=== PATIENT | male | born 1950 | race Caucasian/White ===

== ENCOUNTER 2024-07-31 03:31 | Inpatient (IN) | payer OTHER, MEDICARE ==
[~2024-07-31] VITALS: Ht 172.7 cm; Wt 68.3 kg
--- NOTE | 2024-07-31 04:22 | ED.PDOC ---
HPI Comments 74-year-old male PRAMOD presents with a chief complaint of chest pain x 2 hours. Patient states that his pain is localized to his substernal region, nonradiating, and rates his pain a current 6/10. Patient mentions that he had an ND in May of this year. Status post bypass in 2011. Per EMS, patient took 3 SL Nitro of his own at home and was hypotensive on their arrival. Chief Complaint: Chest Pain Time Seen by MD: 04:12 Reviewed Notes: Medications, Allergies Allergies: Coded Allergies: NO KNOWN ALLERGIES (Unverified , 07/31/24) Information Source: Patient, Emergency Med Personnel Mode of Arrival: EMS Severity: Moderate Timing: Hours Duration: Since onset Prehospital treatment: None Location: Substernal Radiation: No Radiation Quality: Sharp Onset: At Rest Cardiac Risk Factors: HTN PE Risk Factors: None History of: ND Vital Signs Vital Signs Date Time Temp Pulse Resp B/P (MAP) Pulse Ox O2 Delivery O2 Flow Rate FiO2 07/31/24 04:56 70 12 96 Room Air* 0 21 07/31/24 04:56 97.5 86/47 (60) 97.5 Physical Exam General: Awake, alert and oriented. No acute distress. Skin: Skin in warm, dry and intact. Appropriate color for ethnicity. HEENT: The head is normocephalic and atraumatic. Conjunctivae are clear without exudates or hemorrhage. Sclera is non-icteric. EOM are intact. No signs of nystagmus. Eyelids are normal in appearance without swelling or lesions. Oral mucosa is pink and moist Neck: The neck is supple with normal range of motion. No JVD. Cardiac: Heart rate and rhythm are normal. No murmurs, gallops, or rubs are auscultated. Respiratory: No signs of respiratory distress. Lung sounds are clear in all lobes bilaterally without rales, rhonchi, or wheezes. Abdominal: Abdomen is soft, non-tender without distention. Bowel sounds are present and normoactive in all four quadrants. Extremities: Upper and lower extremities are atraumatic in appearance without deformity or edema. Neurological: The patient is awake, alert and oriented to person, place, and time with normal speech. Speech is clear. There is no facial asymmetry. Psychiatric: Appropriate mood and affect. Good judgement and insight. Review of Systems: REVIEW OF SYSTEMS: No fever, no chills, or fatigue HEENT: No sore throat, no earache, no congestion, no neck pain. Cardiac: Positive No chest pain. No palpitations. Lungs: No shortness of breath, no cough. GI: Positive nausea, positive vomiting, no diarrhea, no constipation, no abdominal pain : No dysuria, frequency, or urgency. No hematuria. Musculoskeletal: No joint pain , no joint swelling, no extremity edema. Skin: No rash, no itching. Neuro: No headache, positive dizziness, no weakness Past Medical History PAST MEDICAL HISTORY: ND Surgical History: Denies all surgeries Family History Family History: Reviewed,noncontributory to illness Social History Smoker: Non-Smoker Alcohol: Denies ETOH Use Drugs: Denies Drug Use Lives In: Home EKG EKG : Comments No STEMI Was a procedure done? Was a procedure done?: No CP Differential Dx Differential Diagnosis: MAT, ND, PAC's Differential Diagnosis: HTN Essential, HTN Accelerated, Medical NonCompliance, Induced Differential Diagnosis: Gastritis, Myocardial Infarction, Pericarditis X-Ray, Labs, Meds, VS Vital Signs Date Time Temp Pulse Resp B/P (MAP) Pulse Ox O2 Delivery O2 Flow Rate FiO2 07/31/24 04:56 70 12 96 Room Air* 0 21 07/31/24 04:56 97.5 70 12 86/47 (60) 96 97.5 07/31/24 04:25 93 07/31/24 03:40 97.5 90 14 109/71 (84) 100 97.5 07/31/24 03:31 96 Lab Test 07/31/24 05:43 07/31/24 04:34 Range/Units Troponin I High Sensitivity Pending 42 </=54 ng/L White Blood Count 8.1 4.4-10.8 10^3/uL Red Blood Count 3.79 L 4.5-5.90 10^6/uL Hemoglobin 11.2 L 13.5-17.5 g/dL Hematocrit 32.3 L 41.0-53.0 % Mean Corpuscular Volume 85.2 80.0-100.0 fL Mean Corpuscular Hemoglobin 29.7 28.0-32.0 pg Mean Corpuscular Hemoglobin Concent 34.8 32.0-36.0 g/dL Red Cell Distribution Width 15.3 H 11.8-14.3 % Platelet Count 142 140-450 10^3/uL Mean Platelet Volume 8.8 6.9-10.8 fL Neutrophils (%) (Auto) 74.7 37.0-80.0 % Lymphocytes (%) (Auto) 18.0 10.0-50.0 % Monocytes (%) (Auto) 6.1 0.0-12.0 % Eosinophils (%) (Auto) 0.8 0.0-7.0 % Basophils (%) (Auto) 0.4 0.0-2.0 % Neutrophils # (Auto) 6.0 1.6-8.6 10 ^3/uL Lymphocytes # (Auto) 1.5 0.4-5.4 10 ^3/uL Monocytes # (Auto) 0.5 0-1.3 10 ^3/uL Eosinophils # (Auto) 0.1 0-0.8 10 ^3/uL Basophils # (Auto) 0 0-0.2 10 ^3/uL Nucleated Red Blood Cells 0.0 % Sodium Level 137 136-145 mmol/L Potassium Level 3.3 L 3.5-5.1 mmol/L Chloride Level 99 98-107 mmol/L Carbon Dioxide Level 24 20-31 mmol/L Anion Gap 14 5-15 Blood Urea Nitrogen 47 H 9-23 mg/dL Creatinine 3.48 H 0.700-1.30 mg/dL Glomerular Filtration Rate Calc 17 >90 mL/min BUN/Creatinine Ratio 13.5 10.0-20.0 Serum Glucose 114 H 74-106 mg/dL Calcium Level 10.2 8.7-10.4 mg/dL Total Bilirubin 0.5 0.2-1.0 mg/dL Aspartate Amino Transferase (AST) 12 L 13-40 U/L Alanine Aminotransferase (ALT) < 9 7-40 U/L Alkaline Phosphatase 37 L 46-116 U/L B-Type Natriuretic Peptide 506.01 0-100 pg/mL Total Protein 6.3 5.7-8.2 g/dL Albumin 3.8 3.2-4.8 g/dL Current Medications Medications (Trade) Dose Ordered Sig/Francy Route Start Time Stop Time Status Last Admin Aspirin 324 mg ONCE ONCE PO 07/31/24 04:30 07/31/24 04:31 DC 07/31/24 05:17 Sodium Chloride 250 ml @ 1,000 mls/hr Q15M ONCE IV 07/31/24 04:30 07/31/24 04:44 DC 07/31/24 04:30 Time of 1ST Reevaluation: 04:42 Reevaluation 1ST: Unchanged Patient Education/Counseling: Need For Follow Up Family Education/Counseling: No Family Present Departure 1 Departure Time of Disposition: 06:34 (Patient presented with chest pain that was concerning for possible STEMI, ACS, PE, Pneumonia, Muscle Strain, COPD, Dissection. Data: 1. I ordered and reviewed the result of at least 3 labs including a CBC, BMP, and Troponin. 2. I independently interpreted the following tests: EKG which shows atrial fibrillation and Chest X-ray which shows vascular congestion.Risk:This patient has a high risk of morbidity due to further diagnostic testing or treatment and may suffer from an acute cardiac or respiratory disorder. Workup reveals concern for ACS and patient should be admitted for further workup and possible expert consultation. ) Impression: Primary Impression: Acute chest pain Disposition: ADMITTED INPATIENT Admit to: Med Surg Condition: Serious Critical Care Note Critical Care Time?: Yes Critical care comment: Acute chest pain Authorized and Performed by: Fabiola Giraldo MD Total critical care time: Approximately 39 minutes Due to a high probability of clinically significant, life threatening deterioration, the patient required my highest level of preparedness to intervene emergently and I personally spent this critical care time directly and personally managing the patient. This critical care time included obtaining a history; examining the patient; pulse oximetry; ordering and review of studies; arranging urgent treatment with development of a management plan; evaluation of patient's response to treatment; frequent reassessment; and, discussions with other providers. This critical care time was performed to assess and manage the high probability of imminent, life-threatening deterioration that could result in multi-organ failure. It was exclusive of separately billable procedures and treating other patients and teaching time. Please see my other sections and the rest of the note for further information on patient assessment and treatment. Stability Stability form required: No Heart Score Heart Score: Heart Score Response (Comments) Value History Moderate Suspicious 1 EKG Repolarization Disturb 1 Age >65 2 Risk Factors >3 or Hx ASHD 2 Troponin 1-2 x's Normal limit 1 Total 7 I personally scribed for AURELIO MANCUSO MD ([email or web address]) on 07/31/24 at 04:22. Electronically submitted by Fredy Wood ([email or web address]). AURELIO MANCUSO MD Jul 31, 2024 04:22 FABIOLA GIRALDO MD Jul 31, 2024 06:35
[2024-07-31] MEDS: SODIUM CHLORIDE 0.9% 250 ML IV ONE (04:30)
[2024-07-31 04:46] LABS: Basophils # (auto) 0 10 ^3/uL (0-0.2); Basophils % (auto) 0.4 % (0.0-2.0); Eosinophils # (auto) 0.1 10 ^3/uL (0-0.8); Eosinophils % (auto) 0.8 % (0.0-7.0); Hematocrit 32.3 % (41.0-53.0); Hemoglobin 11.2 g/dL (13.5-17.5); Lymphocytes # (auto) 1.5 10 ^3/uL (0.4-5.4); Mean Corpuscular Hemoglobin 29.7 pg (28.0-32.0); Mean Corpuscular Hgb Conc. 34.8 g/dL (32.0-36.0); Mean Corpuscular Volume 85.2 fL (80.0-100.0); Monocytes # (auto) 0.5 10 ^3/uL (0-1.3); Monocytes % (auto) 6.1 % (0.0-12.0); Neutrophils % (auto) 74.7 % (37.0-80.0); Platelet Count (auto) 142 10^3/uL (140-450); Red Blood Cells 3.79 10^6/uL (4.5-5.90); Red Cell Distribution Width 15.3 % (11.8-14.3); White Blood Cell 8.1 10^3/uL (4.4-10.8)
[2024-07-31 04:56] VITALS: PULSE 70; RESP 12; O2SAT 96
[2024-07-31 05:02] LABS: Anion Gap 14 (5-15); BUN/Creatinine Ratio 13.5 (10.0-20.0); Calcium 10.2 mg/dL (8.7-10.4); Carbon Dioxide 24 mmol/L (20-31); Chloride 99 mmol/L (98-107); Sodium 137 mmol/L (136-145); Total Protein 6.3 g/dL (5.7-8.2)
[2024-07-31 05:03] LABS: Albumin 3.8 g/dL (3.2-4.8); Bilirubin, Total 0.5 mg/dL (0.2-1.0)
[2024-07-31] MEDS: ASPirin 81 mg TAB PO ONE (05:17)
[2024-07-31 05:18] LABS: Alanine Aminotransferase < 9 U/L (7-40); Alkaline Phosphatase 37 U/L (46-116); Aspartate Aminotransferase 12 U/L (13-40); Blood Urea Nitrogen 47 mg/dL (9-23); Glucose 114 mg/dL (74-106); Potassium 3.3 mmol/L (3.5-5.1)
--- NOTE | 2024-07-31 06:30 | DVH ---
EXAM: XR Chest, 1 View CLINICAL INDICATION: cp TECHNIQUE: Frontal view of the chest. COMPARISON: None FINDINGS: LUNGS AND PLEURAL SPACES: Unremarkable. No consolidation. No pneumothorax. HEART: Unremarkable. No cardiomegaly. MEDIASTINUM: Unremarkable. Normal mediastinal contour. BONES/JOINTS: Unremarkable. No acute fracture. OTHER FINDINGS: . None. IMPRESSION: No acute cardiopulmonary process.
--- NOTE | 2024-07-31 06:52 | ECG ---
[facility] Test Date: 2024-07-31 Test Time: 03:31:59 Pat Name: DESTINY GUTIERREZ Department: ED Room: 0294T Gender: M Human Resources Safety Manager: TAYLOR : 1950 Requested By: EMERGENCY EMERGENCY Order Number: [id number] Reading MD: Sampson Musa Measurements Intervals [place] Rate: 96 P: 0 MN: 0 QRS: -38 QRSD: 161 T: 26 QT: 397 QTc: 502 Interpretive Statements Atrial fibrillation Right bundle branch block Electronically Signed On 08-02-2024 20:58:15 PDT by Sampson Musa Please click the below link to view image of tracing.
--- NOTE | 2024-07-31 06:52 | ECG ---
[facility] Test Date: 2024-07-31 Test Time: 04:25:46 Pat Name: DESTINY GUTIERREZ Department: ED Room: 0294T Gender: M Parking Lot Supervisor: TAYLOR : 1950 Requested By: EMERGENCY EMERGENCY Order Number: [id number] Reading MD: Sampson Musa Measurements Intervals [place] Rate: 93 P: 0 OK: 0 QRS: -28 QRSD: 165 T: 22 QT: 433 QTc: 539 Interpretive Statements Atrial fibrillation Right bundle branch block premature ventricular contractions Electronically Signed On 08-02-2024 20:59:04 PDT by Sampson Musa Please click the below link to view image of tracing.
--- NOTE | 2024-07-31 06:53 | ECG ---
[facility] Test Date: 2024-07-31 Test Time: 06:32:25 Pat Name: DESTINY GUTIERREZ Department: ED Room: 0294T Gender: M Aquaculture Worker: TAYLOR : 1950 Requested By: EMERGENCY EMERGENCY Order Number: [id number] Reading MD: Sampson Musa Measurements Intervals [place] Rate: 85 P: 0 OR: 0 QRS: 9 QRSD: 165 T: 31 QT: 441 QTc: 525 Interpretive Statements Atrial fibrillation Right bundle branch block Electronically Signed On 08-02-2024 20:59:21 PDT by Sampson Musa Please click the below link to view image of tracing.
[2024-07-31] MEDS ORDERED: MORPHINE SULFATE INJ 2 MG/ml SYRG IV PRN (07:30)
[2024-07-31] MEDS ORDERED: ONDANSETRON HCL 4 MG/2 ML VIAL IV PRN (07:30)
[2024-07-31] MEDS ORDERED: DEXTROSE (50%) 50ML SYRG IV PRN (07:30)
[2024-07-31] MEDS ORDERED: ACETAMINOPHEN 325 MG TAB PO PRN (07:30)
[2024-07-31] MEDS ORDERED: NITROGLYCERIN 0.4 MG SL TAB SL PRN (07:30)
[2024-07-31] MEDS ORDERED: DOCUSATE SOD 100 MG CAP PO PRN (07:30)
[2024-07-31] MEDS ORDERED: PEN400T PO (08:01)
[2024-07-31] MEDS ORDERED: METO25TA93 PO (08:01)
[2024-07-31] MEDS ORDERED: ASPI1TAB20 PO (08:01)
[2024-07-31] MEDS ORDERED: LORA-622 PO (08:01)
[2024-07-31] MEDS ORDERED: CALC0.25 PO (08:01)
[2024-07-31] MEDS ORDERED: ATOR40TA52 PO (08:01)
[2024-07-31] MEDS ORDERED: DOCU-265 PO (08:01)
[2024-07-31] MEDS ORDERED: NITR0.4D5 SL (08:01)
[2024-07-31] MEDS ORDERED: SODI650T PO (08:01)
[2024-07-31] MEDS ORDERED: ARTISOL13 EACHEYE (08:01)
[2024-07-31] MEDS ORDERED: CLOP75TA70 PO (08:01)
[2024-07-31] MEDS ORDERED: ISOS1TAB28 PO (08:01)
[2024-07-31] MEDS ORDERED: FLUT250M2 INH (08:01)
[2024-07-31] MEDS ORDERED: GABA-1250 PO (08:01)
[2024-07-31] MEDS ORDERED: SACU1TAB PO (08:01)
[2024-07-31] MEDS ORDERED: TAMS0.4C39 PO (08:01)
[2024-07-31] MEDS ORDERED: APIX5TAB PO (08:01)
--- NOTE | 2024-07-31 08:15 | DVHHP2 ---
History of Present Illness Reason for Visit: Chest Pain History of Present Illness Cesar Greenberg is a 74-year-old male with past medical history of FL in May 2024, atrial fibrillation, CAD, diabetes, hyperlipidemia, chronic kidney disease, and CHF, who came in due to chest pain. Patient lives with his daughter. She states he came out of his room about 0100 stating he had a headache, took Tylenol and he was having chest pain for which he took nitro x 2. He was then feeling nauseated, vomited, and took his 3rd nitro after he vomited. The daughter called EMS due to his chest pain continuing. She states his BP was in the low 100, then started dropping. By the time EMS arrived his SBP was in the 60s. Patient states chest pain has improved, continues to complain of headache. Cardiovascular: AFIB, CAD, CHF, FL (May 2024), hyperipidemia Pulmonary: COPD Renal/: Chronic renal insuff, Benign prostatic enlarg. Endocrine: Diabetes Past Surgical History: CABG (2011), Other (cervical spine) Smoke: No ALCOHOL: none Drugs: None Lives: with Family Domestic Violence: Neg Review of Systems Constitutional: No: Fever, Chills, Sweats, Weakness, Malaise, Other Eyes: No: Pain, Vision change, Conjunctivae inflammation, Eyelid inflammation, Other, Redness ENT: No: Ear pain, Ear discharge, Nose pain, Nose discharge, Nose congestion, Mouth pain, Mouth swelling, Throat pain, Throat swelling, Other Respiratory: No: Cough, Dry, Shortness of breath, SOB with excertion, Wheezing, Hemoptysis, Pleuritic Pain, Sputum, Wheezing, Other Cardiovascular: Chest Pain; No: Palpitations, Orthopnea, Paroxysmal Noc. Dyspnea, Edema, Lt Headedness, Other Gastrointestinal: Nausea, Vomiting; No: Abdominal Pain, Diarrhea, Constipation, Melena, Hematochezia, Other Genitourinary: No Dysuria, No Frequency, No Incontinence, No Hematuria, No Retention, No Other Musculoskeletal: No: other, neck pain, shoulder pain, arm pain, back pain, hand pain, leg pain, foot pain Skin: No: Rash, Lesions, Jaundice, Bruising, Other Neurological: No: Weakness, Numbness, Incoordination, Change in speech, Confusion, Seizures, Other Allergies: Coded Allergies: NO KNOWN ALLERGIES (Unverified , 07/31/24) Exam Vital Signs Vital Signs Date Time Temp Pulse Resp B/P (MAP) Pulse Ox O2 Delivery O2 Flow Rate FiO2 07/31/24 06:32 85 07/31/24 06:30 97.5 15 102/52 (69) 96 97.5 07/31/24 04:56 Room Air* 0 21 General Appearance: Alert, Oriented X3, Cooperative, mild distress HEENT: Atraumatic, PERRLA Respiratory: Clear to auscultation, Normal air movement Cardiovascular: Normal S1, Normal S2, Other (atrial fibrillation) Abdominal: Normal bowel sounds, Soft, No tenderness, No hepatospenomegaly Extremities: No clubbing, No cyanosis, No edema, Normal pulses, No tenderness/swelling Skin: No rashes, No breakdown, No significant lesion Neuro: Normal gait, Normal speech, Strength at 5/5 X4 ext Psych/Mental Status: Mental status NL, Mood NL Labs/Xrays Labs Test 07/31/24 05:43 07/31/24 04:34 Range/Units Troponin I High Sensitivity 75 *H </=54 ng/L White Blood Count 8.1 4.4-10.8 10^3/uL Red Blood Count 3.79 L 4.5-5.90 10^6/uL Hemoglobin 11.2 L 13.5-17.5 g/dL Hematocrit 32.3 L 41.0-53.0 % Mean Corpuscular Volume 85.2 80.0-100.0 fL Mean Corpuscular Hemoglobin 29.7 28.0-32.0 pg Mean Corpuscular Hemoglobin Concent 34.8 32.0-36.0 g/dL Red Cell Distribution Width 15.3 H 11.8-14.3 % Platelet Count 142 140-450 10^3/uL Mean Platelet Volume 8.8 6.9-10.8 fL Neutrophils (%) (Auto) 74.7 37.0-80.0 % Lymphocytes (%) (Auto) 18.0 10.0-50.0 % Monocytes (%) (Auto) 6.1 0.0-12.0 % Eosinophils (%) (Auto) 0.8 0.0-7.0 % Basophils (%) (Auto) 0.4 0.0-2.0 % Neutrophils # (Auto) 6.0 1.6-8.6 10 ^3/uL Lymphocytes # (Auto) 1.5 0.4-5.4 10 ^3/uL Monocytes # (Auto) 0.5 0-1.3 10 ^3/uL Eosinophils # (Auto) 0.1 0-0.8 10 ^3/uL Basophils # (Auto) 0 0-0.2 10 ^3/uL Nucleated Red Blood Cells 0.0 % Sodium Level 137 136-145 mmol/L Potassium Level 3.3 L 3.5-5.1 mmol/L Chloride Level 99 98-107 mmol/L Carbon Dioxide Level 24 20-31 mmol/L Anion Gap 14 5-15 Blood Urea Nitrogen 47 H 9-23 mg/dL Creatinine 3.48 H 0.700-1.30 mg/dL Glomerular Filtration Rate Calc 17 >90 mL/min BUN/Creatinine Ratio 13.5 10.0-20.0 Serum Glucose 114 H 74-106 mg/dL Calcium Level 10.2 8.7-10.4 mg/dL Total Bilirubin 0.5 0.2-1.0 mg/dL Aspartate Amino Transferase (AST) 12 L 13-40 U/L Alanine Aminotransferase (ALT) < 9 7-40 U/L Alkaline Phosphatase 37 L 46-116 U/L B-Type Natriuretic Peptide 506.01 0-100 pg/mL Total Protein 6.3 5.7-8.2 g/dL Albumin 3.8 3.2-4.8 g/dL EXAM: XR Chest, 1 View FINDINGS: LUNGS AND PLEURAL SPACES: Unremarkable. No consolidation. No pneumothorax. HEART: Unremarkable. No cardiomegaly. MEDIASTINUM: Unremarkable. Normal mediastinal contour. BONES/JOINTS: Unremarkable. No acute fracture. OTHER FINDINGS: . None. IMPRESSION: No acute cardiopulmonary process. Assessment/Plan Assessment/Plan Assessment: Acute chest pain, R/O ACS, Elevated troponin, Headache, Atrial fibrillation, Diabetes, Chronic kidney disease, Plan: Admit to Tele, Cardiology consult, ACS protocol, CT head, Accu checks Q AC&HS with sliding scale, Home medications reconciled, Plan discussed with: Patient, Daughter My Orders Orders - JIGNA MORENO SUPERIOR COURT JUDGE Procedure Category Date Status Time Admit ADMIT 07/31/24 Verified 07:30 Code Status CODE 07/31/24 Verified 07:30 2 Gm Sodium Diet DIET 07/31/24 Verified Breakfast Sodium Chloride Lock PHA 07/31/24 Verified (Saline Lock Ns) 14:00 Ondansetron Hcl PHA 07/31/24 Verified (Zofran) 07:30 Docusate Sodium [facility] 07/31/24 Verified Capsule (Colace 07:30 Complete Blood Count LAB 08/01/24 Verified 04:00 Comprehensive LAB 08/01/24 Verified Metabolic Panel 04:00 Condition: Serious [facility] 07/31/24 Verified 07:30 Acetaminophen Tablet [facility] 07/31/24 Verified (Tylenol Tablet) 07:30 Nitroglycerin [facility] 07/31/24 Verified Sublingual (Ntrostat 07:30 Morphine Sulfate PHA 07/31/24 Verified Injection 07:30 Stat Ekg For Chest [facility] 07/31/24 Verified Pain 07:30 Notify Md Of Changes [facility] 07/31/24 Verified From Base 07:30 Duck Bill Operator For [facility] 07/31/24 Verified 24 Hours 07:30 Emergency Dysrhythmia [facility] 07/31/24 Verified Protocol 07:30 Rhythm Strips Once [facility] 07/31/24 Verified Every Shift 07:30 Oxygen By Nasal RT 07/31/24 Verified Cannula 07:30 Glucose Blood [facility] 07/31/24 Verified (Accu-Chek Comfort 11:30 Bedtime Insulin Scale PHA 07/31/24 Verified 22:00 Moderate Insulin Ss PHA 07/31/24 Verified 11:30 Dextrose 50% Syringe [facility] 07/31/24 Verified 07:30 Date of Service: Jul 31, 2024 Billing Provider: JIGNA MORENO Common Visit Codes: [id number] INP/OBS CARE (MOD) JIGNA MORENO Jul 31, 2024 08:15
--- NOTE | 2024-07-31 08:50 | DVHINCON2 ---
ANA CRISTINA HOROWITZ [facility] 07/31/24 0850: Date Seen: Jul 31, 2024 Referring Physician DEMETRIUS Rich Reason for Consultation Chest pain History of Present Illness This is a pleasant 74-year-old man who presented to emergency room via EMS with a chief complaint of chest pain. The patient reports he developed a sudden onset of substernal chest pain with a an associated headache for which he took NTG SL 0.4 mg x 2 with no relief of symptoms and developing nausea and vomiting. He subsequently took a 3rd dose of NTG SL 0.4 mg without relief. Daughter who is at bedside reports taking his blood pressure and finding a systolic BP at 66 mmHg. At time of assessment, the patient denied any further chest pain. He has undergone multiple 12 lead electrocardiograms x 3 revealing an atrial fibrillation rhythm at a controlled rate with an associated right bundle branch block, multiple PVCs, and T-wave inversion to anteroseptal leads. Reports an admission for chest pain at [facility] on 05/2024. At time, the patient underwent a coronary angiogram with cardiac catheterization with findings of progressive moderate coronary artery disease with no need for catheter based intervention. He was advised to stop Nifedipine and Coreg and to initiate Plavix, metoprolol, and Entresto therapy. He is currently on Plavix, ASA, and Eliquis. Follows-up with Director Of Student Aid Dr. Buckner with upcoming appointment on 08/02/2024. Significant medical history includes coronary artery disease status post quadruple vessel CABG in [place], [place] on 2011, unspecified atrial fibrilla tion, hypertension, dyslipidemia, sfc-[id number] diabetes mellitus, advanced chronic kidney disease stage 4, and benign prostatic hyperplasia. Past Medical History Past medical history reviewed. No other significant than mentioned above. Past Surgical History Quadruple vessel CABG, 2012 Anterior cervical fusion Family History Family history reviewed. Social History Denies the use of illicit drugs, alcohol, or tobacco use. Allergies: Coded Allergies: NO KNOWN ALLERGIES (Unverified , 07/31/24) Home Meds Reported Medications Nitroglycerin (Nitroglycerin Transdermal) 0.4 Mg/Hr Dis, 0.4 MG SL Q5MIN PRN, DIS 07/31/24 Tamsulosin Hcl (Tamsulosin Hcl) 0.4 Mg Cap, 2 CAP PO HS, #30 CAP 5 Refills 07/31/24 Sodium Bicarbonate (Sodium Bicarbonate) 650 Mg Tab, 650 MG PO BID, TAB 07/31/24 Sacubitril-Valsartan (Entresto 24-26 mg) 1 Tab Tab, 1 TAB PO BID, TAB 07/31/24 Metoprolol Succinate (Metoprolol Succinate Er) 25 Mg Tab, 1 TAB PO BID, #30 TAB 5 Refills 07/31/24 Loratadine (Claritin) 10 Mg Tab, 1 TAB PO EOD, #30 TAB 5 Refills 07/31/24 Isosorbide Mononitrate (Isosorbide Mononitrate Er) 30 Mg Tab, 3 TAB PO DAILY, #30 TAB 5 Refills 07/31/24 Pentoxifylline (TRENTAL ER TABLET) 400 Mg Tb, 400 MG PO BIDBL, TAB 07/31/24 Gabapentin (Gabapentin) 300 Mg Cap, 1 CAP PO DAILYP PRN, #90 CAP 5 Refills 07/31/24 Fluticasone-Salmeterol (Advair Diskus 250/50) 1 Puff Ih, 1 PUFF INH BID, #3 INHALER 3 Refills 07/31/24 Docusate Sodium (Docusate Sodium) 100 Mg Cap, 100 MG PO DAILYP PRN, CAP 07/31/24 Clopidogrel Bisulfate (CLOPIDOGREL) 75 Mg Tab, 1 TAB PO DAILY, #90 TAB 1 Refill 07/31/24 Calcitriol (Calcitriol) 0.25 Mcg Cap, 2 CAP PO DAILY, #30 CAP 5 Refills 07/31/24 Atorvastatin Calcium (ATORVASTATIN CALCIUM) 40 Mg Tab, 1 TAB PO QPM, #90 TAB 3 Refills 07/31/24 Artificial Tear Solution (ARTIFICIAL TEARS) Tears Lori, 1 DROP EACHEYE QID, #15 ML 5 Refills 07/31/24 Aspirin (Aspir-81) 81 Mg Tab, 1 TAB PO DAILY, #30 TAB 5 Refills 07/31/24 Apixaban Base (ELIQUIS) 5 Mg Tab, 5 MG PO BID, TAB 07/31/24 Home Meds Home medications reviewed. Current Medications Current Medications Medications (Trade) Dose Ordered Sig/Francy Route PRN Reason Start Time Stop Time Status Last Admin Sodium Chloride (Saline Lock Ns) 10 ml Q8HR IV 07/31/24 14:00 Ondansetron HCl (Zofran) 4 mg Q4HP PRN IV NAUSEA / VOMITING 07/31/24 07:30 Docusate Sodium (Colace Capsule) 100 mg BIDPRN PRN PO FOR CONSTIPATION 07/31/24 07:30 Acetaminophen (Tylenol Tablet) 650 mg Q6HP PRN PO PAIN SCALE 1-3 OR TEMP>100.4 07/31/24 07:30 Nitroglycerin (Ntrostat Sublingual) 0.4 mg Q5MINP PRN SL FOR CHEST PAIN 07/31/24 07:30 Morphine Sulfate 2 mg Q30M PRN IV FOR CHEST PAIN 07/31/24 07:30 Diagnostic Test (Pha) (Accu-Chek Comfort Curve T) 1 strip ACHS 07/31/24 11:30 Insulin Human Regular (InsuLIN R) HS SC 07/31/24 22:00 Insulin Human Regular (InsuLIN R) AC SC 07/31/24 11:30 Dextrose 50 ml UD PRN IV Blood Sugar LESS THAN 60 07/31/24 07:30 Apixaban (Eliquis) 5 mg BID PO 07/31/24 10:00 Aspirin (Ecotrin Enteric Coated Tablet) 81 mg DAILY PO 07/31/24 10:00 Calcitriol (Rocaltrol Capsule) 0.25 mcg DAILY PO 07/31/24 10:00 Clopidogrel Bisulfate (Plavix) 75 mg DAILY PO 07/31/24 10:00 Gabapentin (Neurontin Capsule) 300 mg DAILYP PRN PO PAIN SCALE 1 THRU 6 07/31/24 07:45 Loratadine (Claritin Tablet) 10 mg EOD PO 07/31/24 10:00 Pentoxifylline (TRENtal ER Tablet) 400 mg BIDBL PO 07/31/24 08:00 Sacubitril/ Valsartan (Entresto 24-26 Mg tab) 1 tab BID PO 07/31/24 10:00 Tamsulosin HCl (Flomax) 0.8 mg HS PO 07/31/24 22:00 Patient Own Medication 1 drop QID EACHEYE 07/31/24 12:00 UNV Patient Own Medication 1 tab QPM PO 07/31/24 18:00 UNV Patient Own Medication 3 tab DAILY PO 07/31/24 10:00 UNV Patient Own Medication 1 tab BID PO 07/31/24 10:00 UNV Patient Own Medication 650 mg BID PO 07/31/24 10:00 UNV Artificial Tears (Tears Naturale) 1 drop QID OP 07/31/24 12:00 Atorvastatin Calcium (Lipitor) 40 mg HS PO 07/31/24 22:00 Isosorbide Mononitrate (Imdur Er Tablet) 90 mg DAILY PO 07/31/24 10:00 Sodium Bicarbonate 650 mg BID PO 07/31/24 10:00 Metoprolol Succinate (Toprol Xl) 25 mg BID PO 07/31/24 10:00 Review of Systems Constitutional: No symptom reported Ears, Nose, & Throat: No symptom reported Eyes: No symptom reported Neurological: ELMORE Pulmonary/Respiratory: No symptom reported Cardiovascular: Chest pain Gastrointestinal: No symptom reported Genitourinary: No symptom reported Musculoskeletal: No symptom reported Skin: No symptom reported Psychiatric: No symptom reported Endocrine: No symptom reported Hemotologic/Lymphatic: No symptom reported Vital Signs Vital Signs Date Time Temp Pulse Resp B/P (MAP) Pulse Ox O2 Delivery O2 Flow Rate FiO2 07/31/24 06:32 85 07/31/24 06:30 97.5 15 102/52 (69) 96 97.5 07/31/24 04:56 Room Air* 0 21 Physical Exam General Appearance: Cooperative. Well developed. Well nourished. In no acute distress Head Exam: Normal inspection Neck Exam: Normal inspection. Non-tender. Normal alignment Pulmonary/Respiratory: Chest non-tender. Clear bilateral breath sounds Cardiovascular/Chest: Irregularly irregular rate and rhythm. AFib, controlled rate. RBBB. PVCs. No murmurs. No JVD. Peripheral Pulses: 2+ Radial (R). 2+ Radial (L). 2+ Pedal (R). 2+ Pedal (L) Abdominal Exam: Normal bowel sounds. Soft. Nontender. No hepatospenomegaly. No masses Ankle Exam: Negative ankle edema Lower extremities: Negative lower extremity edema Neuro/Mental Status: A&O x4. Coherent Thoughts/Psych: Normal thought pattern. Appropriate mood and affect. Good judgement and insight Appearance: In no acute distress Skin Exam: Normal inspection. Normal color. Warm. Dry Labs/Diagnostic Data Labs Test 07/31/24 07:03 07/31/24 04:34 Range/Units Troponin I High Sensitivity 290 *H </=54 ng/L White Blood Count 8.1 4.4-10.8 10^3/uL Red Blood Count 3.79 L 4.5-5.90 10^6/uL Hemoglobin 11.2 L 13.5-17.5 g/dL Hematocrit 32.3 L 41.0-53.0 % Mean Corpuscular Volume 85.2 80.0-100.0 fL Mean Corpuscular Hemoglobin 29.7 28.0-32.0 pg Mean Corpuscular Hemoglobin Concent 34.8 32.0-36.0 g/dL Red Cell Distribution Width 15.3 H 11.8-14.3 % Platelet Count 142 140-450 10^3/uL Mean Platelet Volume 8.8 6.9-10.8 fL Neutrophils (%) (Auto) 74.7 37.0-80.0 % Lymphocytes (%) (Auto) 18.0 10.0-50.0 % Monocytes (%) (Auto) 6.1 0.0-12.0 % Eosinophils (%) (Auto) 0.8 0.0-7.0 % Basophils (%) (Auto) 0.4 0.0-2.0 % Neutrophils # (Auto) 6.0 1.6-8.6 10 ^3/uL Lymphocytes # (Auto) 1.5 0.4-5.4 10 ^3/uL Monocytes # (Auto) 0.5 0-1.3 10 ^3/uL Eosinophils # (Auto) 0.1 0-0.8 10 ^3/uL Basophils # (Auto) 0 0-0.2 10 ^3/uL Nucleated Red Blood Cells 0.0 % Sodium Level 137 136-145 mmol/L Potassium Level 3.3 L 3.5-5.1 mmol/L Chloride Level 99 98-107 mmol/L Carbon Dioxide Level 24 20-31 mmol/L Anion Gap 14 5-15 Blood Urea Nitrogen 47 H 9-23 mg/dL Creatinine 3.48 H 0.700-1.30 mg/dL Glomerular Filtration Rate Calc 17 >90 mL/min BUN/Creatinine Ratio 13.5 10.0-20.0 Serum Glucose 114 H 74-106 mg/dL Calcium Level 10.2 8.7-10.4 mg/dL Total Bilirubin 0.5 0.2-1.0 mg/dL Aspartate Amino Transferase (AST) 12 L 13-40 U/L Alanine Aminotransferase (ALT) < 9 7-40 U/L Alkaline Phosphatase 37 L 46-116 U/L B-Type Natriuretic Peptide 506.01 0-100 pg/mL Total Protein 6.3 5.7-8.2 g/dL Albumin 3.8 3.2-4.8 g/dL Assessment Acute coronary syndrome ELMORE rule out acute neurological processes Chronic renocardiac syndrome Type IV NSTEMI, likely type II secondary to above Coronary artery disease status post quadruple vessel CABG (on ASA/Plavix) Unspecified atrial fibrillation, controlled rate (on Eliquis) [id number] diabetes mellitus Hypertension Dyslipidemia CKD stage IV Plan/Recommendation (Dr. Brown) Possible acute coronary syndrome. The patient will undergo a transthoracic echocardiogram to evaluate cardiac function. In the meantime, only continue BB given borderline blood pressures. Avoid nephrotoxic agent. No cardiac interventions recommended given recent coronary angiogram with cardiac catheterization and without catheter based intervention on 05/2024. Continue single-antiplatelet therapy with plavix and lipid-lowering agent. Continue Eliquis therapy. Likely persistent atrial fibrillation, patient off antiarrhythmic therapy at home. We do not recommend triple therapy with ASA, Plavix, and Eliquis. This was discussed with patient and daughter at bedside. Suspect aggressive antihypertensive therapy, initiate BP log. Continue follow- up with primary dough panner on 08/02/2024. In the setting of an unremarkable echocardiogram, there is no further cardiac work-up indicated. Thank you for allowing us to participate in this patient's care. Please call if you have any questions or concerns. This medical document was created using an electronic medical record system with voice recognition software and computerized dictation system. Although this document has been carefully reviewed, there might still be some phonetic and typographical errors. Occasional wrong-word or ``sound-alike substitutions may have occurred due to the inherent limitations of voice recognition software. These areas are purely typographical due to imperfections of the software programs and do not reflect any compromise in the patient's medical care. Please read the chart carefully and recognize, using context, where these substitutions have occurred. Plan discussed with: Patient, Daughter, Other NYHA Physical activity limitations: NA Date of Service: Jul 31, 2024 Billing Provider: ANA CRISTINA HOROWITZ [facility] Common Codes: 13223-[id number] INP/OBS CARE (High) BRITTON BROWN MD 07/31/24 1255: Allergies: Coded Allergies: NO KNOWN ALLERGIES (Unverified , 07/31/24) Home Meds Reported Medications Nitroglycerin (Nitroglycerin Transdermal) 0.4 Mg/Hr Dis, 0.4 MG SL Q5MIN PRN, DIS 07/31/24 Tamsulosin Hcl (Tamsulosin Hcl) 0.4 Mg Cap, 2 CAP PO HS, #30 CAP 5 Refills 07/31/24 Sodium Bicarbonate (Sodium Bicarbonate) 650 Mg Tab, 650 MG PO BID, TAB 07/31/24 Sacubitril-Valsartan (Entresto 24-26 mg) 1 Tab Tab, 1 TAB PO BID, TAB 07/31/24 Metoprolol Succinate (Metoprolol Succinate Er) 25 Mg Tab, 1 TAB PO BID, #30 TAB 5 Refills 07/31/24 Loratadine (Claritin) 10 Mg Tab, 1 TAB PO EOD, #30 TAB 5 Refills 07/31/24 Isosorbide Mononitrate (Isosorbide Mononitrate Er) 30 Mg Tab, 3 TAB PO DAILY, #30 TAB 5 Refills 07/31/24 Pentoxifylline (TRENTAL ER TABLET) 400 Mg Tb, 400 MG PO BIDBL, TAB 07/31/24 Gabapentin (Gabapentin) 300 Mg Cap, 1 CAP PO DAILYP PRN, #90 CAP 5 Refills 07/31/24 Fluticasone-Salmeterol (Advair Diskus 250/50) 1 Puff Ih, 1 PUFF INH BID, #3 INHALER 3 Refills 07/31/24 Docusate Sodium (Docusate Sodium) 100 Mg Cap, 100 MG PO DAILYP PRN, CAP 07/31/24 Clopidogrel Bisulfate (CLOPIDOGREL) 75 Mg Tab, 1 TAB PO DAILY, #90 TAB 1 Refill 07/31/24 Calcitriol (Calcitriol) 0.25 Mcg Cap, 2 CAP PO DAILY, #30 CAP 5 Refills 07/31/24 Atorvastatin Calcium (ATORVASTATIN CALCIUM) 40 Mg Tab, 1 TAB PO QPM, #90 TAB 3 Refills 07/31/24 Artificial Tear Solution (ARTIFICIAL TEARS) Tears Lori, 1 DROP EACHEYE QID, #15 ML 5 Refills 07/31/24 Aspirin (Aspir-81) 81 Mg Tab, 1 TAB PO DAILY, #30 TAB 5 Refills 4/14/25 Apixaban Base (ELIQUIS) 5 Mg Tab, 5 MG PO BID, TAB 07/31/24 Plan/Recommendation recent cath at [facility] recommend plavix by them , no intervention dc triple therapy -not appropriate dc asa add isosorbide vs ranexa [facility] ANA CRISTINA HOROWITZP Jul 31, 2024 08:50 BRITTON BROWN MD Jul 31, 2024 12:55
[2024-07-31] MEDS: PENTOXIFYLLINE 400 MG ER TAB PO SCH (09:10)
--- NOTE | 2024-07-31 09:55 | DVH ---
EXAM: CT HEAD WITHOUT CONTRAST INDICATION: ELMORE TECHNIQUE: CT of the head without intravenous contrast. Coronal and sagittal reformatted images are s ubmitted. Radiation Dose : 1. Head: CT Dose: CTDI volume is 57.69 mGy. Dose-length product is 924.7 mGy*cm The dose indicators for CT are the volume Computed Tomography (CT) Dose Index (CTDIvol) and the Dose Length Product (DLP), and are measured in units of mGy and mGy-cm, respectively. These indicators are not patient dose, but values generated from the CT scanner acquisition factors. The report includes radiation exposure data for exposures received during this examination. All CT scans at this medical facility are performed using dose modulation techniques as appropriate to a performed exam including the following: Automated exposure control was utilized; adjustment of the MA and/or KV according to patient size; and use of iterative reconstruction technique. COMPARISON: None FINDINGS: There is no evidence of acute intracranial hemorrhage, extra-axial collection, mass effect, midline s hift, herniation or hydrocephalus. Old left basal ganglia infarct. The ventricles, sulci and cisterns are age appropriate. The masters-white differentiation is intact. The mastoid air cells are clear. There is mild mucosal thickening in the right maxillary sinus. No depressed calvarial fracture. The surrounding soft tissues are unremarkable. IMPRESSION: 1. No evidence of acute intracranial abnormality.
[2024-07-31 09:56] LABS: Magnesium 1.7 mg/dL (1.6-2.6)
[2024-07-31] MEDS: SODIUM BICARBONATE 650 MG TAB PO SCH (09:59)
[2024-07-31] MEDS: CALCITRIOL 0.25 MCG CAP PO SCH (09:59)
[2024-07-31] MEDS ORDERED: ASPirin-EC 81 mg tab PO SCH (10:00)
[2024-07-31] MEDS ORDERED: PATIENTS OWN MEDICATION (Sodium Bicarbonate 650 MG) PO SCH (10:00)
[2024-07-31] MEDS ORDERED: SACUBITRIL-VALSARTAN 24mg/26mg TAB PO SCH (10:00)
[2024-07-31] MEDS ORDERED: PATIENTS OWN MEDICATION (Metoprolol Succinate (Metoprolol Succinate Er) 1 TAB) PO SCH (10:00)
[2024-07-31] MEDS ORDERED: ISOSORBIDE MONONITRATE PO SCH (10:00)
[2024-07-31] MEDS: LORATADINE 10 MG TAB PO SCH (10:02)
[2024-07-31] MEDS: ISOSORBIDE MONONITRATE ER 60 MG TAB PO SCH (10:02)
[2024-07-31] MEDS: METOPROLOL SUCCINATE XL 50 MG TAB PO SCH (10:02)
[2024-07-31] MEDS: CLOPIDOGREL BISULFATE 75 MG TAB PO SCH (10:03)
[2024-07-31] MEDS: APIXABAN 5 MG TAB PO SCH (10:03)
[2024-07-31] MEDS: POTASSIUM CHL 20 Meq TABLET PO ONE (10:08)
[2024-07-31] MEDS: ACCU-CHEK COMFORT CURVE STRIP VI SCH (11:30)
[2024-07-31] MEDS: InsuLIN REG 1unit/0.01ml Soln (100units/ml) SC SCH ×2 (11:30→22:00)
[2024-07-31] MEDS: ARTIFICIAL TEARS 15ml OP SCH (12:00)
[2024-07-31] MEDS ORDERED: ARTIFICIAL TEAR EACHEYE SCH (12:00)
--- NOTE | 2024-07-31 13:07 | DVHSR ---
APPROVED REPORT EXAM: Two-dimensional and M-mode echocardiogram with Doppler and color Doppler. Blood Pressure: 102/52 mmHg INDICATION Chest Pain Surgery/Intervention CABG: RISK FACTORS Height: 5'10, Weight: 180 DIMENSIONS LVDd4.5 (3.8-5.7cm)LA (2D)4.2 (1.9-4.0cm)Aortic Root3.4 (2.0-3.7cm) LVDs3.1 (2.5-4.0cm)LA (MM) (1.9-4.0cm)Aortic Cusp Exc1.3 (1.5-2.0cm) EF (%) 55.0 (55-70%)Rt. Atrium2.7 (1.9-4.0cm)Asc. Aorta cm IVSd1.2 (0.7-1.1cm)RV (D)3.5 (1.8-2.4cm) PWd1.4 (0.7-1.1cm) Mitral Valve MitralMitral Stenosis E wave1.15m/sMV Mean GR.2mmHg A wave0.60m/sMV Peak GR.6mmHg E/A ratio1.92D MVAcm2 DECEL [id number] 1/2 Timems Aortic Valve Aortic ValveAortic Stenosis V11.00m/Allie Mean GR.3mmHg V21.15m/Allie Peak GR.5mmHg LVOT Diameter2.3 (1.8-2.4cm)Doppler AVA3.61cm2 Pulmonic Valve V20.88m/s Tricuspid Valve TR Velocity2.18m/s [id number] Conclusion lvef 45% by visual estimate septum is hypokinetic severe LVH aortic sclerosis MAC noted left atrium enlarged moderate
[2024-07-31] MEDS: SODIUM CHLOR 0.9% PF (SALINE LOCK) 10ML VIAL/SYR IV SCH (14:18)
--- NOTE | 2024-07-31 15:43 | ECG ---
[facility] Test Date: 2024-07-31 Test Time: 15:42:21 Pat Name: DESTINY GUTIERREZ Department: ED Room: 0294T Gender: M Rn Cardiac Rehab: [facility]ISON : 1950 Requested By: ANA CRISTINA HOROWITZ Order Number: [id number] Reading MD: Sampson Musa Measurements Intervals [place] Rate: 64 P: 0 MS: 0 QRS: -14 QRSD: 159 T: 18 QT: 457 QTc: 472 Interpretive Statements Junctional rhythm Right bundle branch block Left ventricular hypertrophy Electronically Signed On 08-02-2024 21:02:18 PDT by Sampson Musa Please click the below link to view image of tracing.
[2024-07-31] MEDS ORDERED: PATIENTS OWN MEDICATION (Atorvastatin Calcium 1 TAB) PO SCH (18:00)
[2024-07-31 19:30] VITALS: PULSE 70; RESP 12; O2SAT 96
[2024-07-31] MEDS: ATORVASTATIN 20 MG TAB PO SCH (22:15)
[2024-07-31] MEDS: TAMSULOSIN HYDROCHLORIDE 0.4 MG CAP PO SCH (22:17)
[2024-07-31] MEDS: GABAPENTIN 300 MG CAP PO PRN (22:32)
[2024-07-31 23:26] VITALS: BP 132/64; PULSE 58; RESP 16; TEMP 97.6; O2SAT 96
[2024-07-31] MEDS ORDERED: CHOL1TAB30 PO (23:48)
[2024-08-01] VITALS (8 sets, daily range): BP systolic 131–160; BP diastolic 54–74; PULSE 52–62; RESP 14–18; TEMP 97.2–98.2; O2SAT 95–99
[2024-08-01 07:47] LABS: Basophils # (auto) 0 10 ^3/uL (0-0.2); Basophils % (auto) 0.4 % (0.0-2.0); Eosinophils # (auto) 0.1 10 ^3/uL (0-0.8); Eosinophils % (auto) 1.9 % (0.0-7.0); Hematocrit 29.5 % (41.0-53.0); Hemoglobin 9.9 g/dL (13.5-17.5); Lymphocytes # (auto) 1.8 10 ^3/uL (0.4-5.4); Lymphocytes % (auto) 32.7 % (10.0-50.0); Mean Corpuscular Hemoglobin 28.4 pg (28.0-32.0); Mean Corpuscular Hgb Conc. 33.7 g/dL (32.0-36.0); Mean Corpuscular Volume 84.5 fL (80.0-100.0); Monocytes # (auto) 0.4 10 ^3/uL (0-1.3); Monocytes % (auto) 7.7 % (0.0-12.0); Neutrophils # (auto) 3.1 10 ^3/uL (1.6-8.6); Neutrophils % (auto) 57.3 % (37.0-80.0); Platelet Count (auto) 136 10^3/uL (140-450); Red Blood Cells 3.49 10^6/uL (4.5-5.90); Red Cell Distribution Width 15.2 % (11.8-14.3); White Blood Cell 5.4 10^3/uL (4.4-10.8)
[2024-08-01 07:49] LABS: Alanine Aminotransferase 10 U/L (7-40); Albumin 3.3 g/dL (3.2-4.8); Anion Gap 8 (5-15); BUN/Creatinine Ratio 13.1 (10.0-20.0); Bilirubin, Total 0.5 mg/dL (0.2-1.0); Calcium 9.7 mg/dL (8.7-10.4); Carbon Dioxide 27 mmol/L (20-31); Potassium 3.5 mmol/L (3.5-5.1)
[2024-08-01 08:01] LABS: Alkaline Phosphatase 34 U/L (46-116); Aspartate Aminotransferase 81 U/L (13-40); Blood Urea Nitrogen 44 mg/dL (9-23); Chloride 97 mmol/L (98-107); Glucose 113 mg/dL (74-106); Sodium 132 mmol/L (136-145); Total Protein 5.4 g/dL (5.7-8.2)
--- NOTE | 2024-08-01 09:38 | DVHPN2 ---
Consult Progress Note Date Seen: Aug 01, 2024 Subjective Review of Systems: CVS:Normal, RESPIRATORY:Normal, NEURO:Normal Other Systems: Notoified of trending troponin levels. Denies any cardiac symptoms Objective vital signs Vital Sign Date Time Temp Pulse Resp B/P (MAP) Pulse Ox O2 Delivery O2 Flow Rate FiO2 08/01/24 09:00 97.6 55 14 148/64 (92) 96 97.6 08/01/24 00:10 Room Air* 0 21 Total Intake and Output 07/31/24 07/31/24 08/01/24 15:00 23:00 07:00 Intake Total 100 ml Balance 100 ml medications Current Medications Medications Dose Ordered Sig/Francy Route Start Time Stop Time Status Last Admin Dose Admin Sodium Chloride 10 ml Q8HR IV 07/31/24 14:00 08/01/24 05:53 10 ML Ondansetron HCl 4 mg Q4HP PRN IV 07/31/24 07:30 Docusate Sodium 100 mg BIDPRN PRN PO 07/31/24 07:30 Acetaminophen 650 mg Q6HP PRN PO 07/31/24 07:30 Nitroglycerin 0.4 mg Q5MINP PRN SL 07/31/24 07:30 Morphine Sulfate 2 mg Q30M PRN IV 07/31/24 07:30 Diagnostic Test (Pha) 1 strip ACHS 07/31/24 11:30 08/01/24 06:11 1 STRIP Insulin Human Regular HS SC 07/31/24 22:00 Insulin Human Regular AC SC 07/31/24 11:30 Dextrose 50 ml UD PRN IV 07/31/24 07:30 Apixaban 5 mg BID PO 07/31/24 10:00 07/31/24 22:16 5 MG Calcitriol 0.25 mcg DAILY PO 07/31/24 10:00 07/31/24 09:59 0.25 MCG Clopidogrel Bisulfate 75 mg DAILY PO 07/31/24 10:00 07/31/24 10:03 75 MG Gabapentin 300 mg DAILYP PRN PO 07/31/24 07:45 07/31/24 22:32 300 MG Loratadine 10 mg EOD PO 07/31/24 10:00 07/31/24 10:02 10 MG Pentoxifylline 400 mg BIDBL PO 07/31/24 08:00 07/31/24 12:46 400 MG Tamsulosin HCl 0.8 mg HS PO 07/31/24 22:00 07/31/24 22:17 0.8 MG Patient Own Medication 1 drop QID EACHEYE 07/31/24 12:00 UNV Patient Own Medication 1 tab QPM PO 07/31/24 18:00 UNV Patient Own Medication 3 tab DAILY PO 07/31/24 10:00 UNV Patient Own Medication 1 tab BID PO 07/31/24 10:00 UNV Patient Own Medication 650 mg BID PO 07/31/24 10:00 UNV Artificial Tears 1 drop QID OP 07/31/24 12:00 07/31/24 18:08 1 DROP Atorvastatin Calcium 40 mg HS PO 07/31/24 22:00 07/31/24 22:15 40 MG Isosorbide Mononitrate 90 mg DAILY PO 07/31/24 10:00 07/31/24 10:02 90 MG Sodium Bicarbonate 650 mg BID PO 07/31/24 10:00 07/31/24 22:37 650 MG Metoprolol Succinate 25 mg BID PO 07/31/24 10:00 07/31/24 10:02 25 MG Examination: LUNGS:Normal, CVS:Normal (A-fib controlled rate), NEURO:Normal laboratory and microbiology Laboratory Tests 08/01/24 06:19 Test 08/01/24 06:19 Range/Units Serum Glucose 113 H 74-106 mg/dL Problem List/Assessment/Plan Problem List/Assessment/Plan Acute coronary syndrome Chronic renocardiac syndrome Type IV NSTEMI, likely type II secondary to above Coronary artery disease status post quadruple vessel CABG (on ASA/Plavix) Unspecified atrial fibrillation, controlled rate (on Eliquis) Oyk-iedwsec-ttogfwsyy diabetes mellitus Hypertension Dyslipidemia CKD stage IV Plan/Recommendation (Dr. Ashley) Acute coronary syndrome with trending troponin levels. Denies any cardiac symptoms, repeat twelve-lead electrocardiogram do not reveal progressive ST changes. Dr. Ashley notified who will evaluate patient at bedside. A transthoracic echocardiogram revealed an LVEF of 45%, septum is hypokinetic, severe LVH, aortic sclerosis, MAC noted. Continue BB and isosorbide mononitrate. Avoid nephrotoxic agents. No cardiac interventions recommended given recent coronary angiogram with cardiac catheterization and without catheter based intervention on 05/2024. Continue single-antiplatelet therapy with plavix and lipid-lowering agent. Hold Eliquis therapy this morning. Likely persistent atrial fibrillation, patient off antiarrhythmic therapy at home. We do not recommend triple therapy with ASA, Plavix, and Eliquis, not safe. Continue chest pain protocol. Continue follow-up with primary service mechanic on 08/02/2024. Further orders per clinical course. Thank you for allowing us to participate in this patient's care. Please call if you have any questions or concerns. This medical document was created using an electronic medical record system with voice recognition software and computerized dictation system. Although this document has been carefully reviewed, there might still be some phonetic and typographical errors. Occasional wrong-word or ``sound-alike substitutions may have occurred due to the inherent limitations of voice recognition software. These areas are purely typographical due to imperfections of the software programs and do not reflect any compromise in the patient's medical care. Please read the chart carefully and recognize, using context, where these substitutions have occurred. Plan discussed with: Patient, Other Date of Service: Aug 01, 2024 Billing Provider: ANA CRISTINA HOROWITZ Cardiology Common Codes: [id number](High ANA CRISTINA HOROWITZ Aug 01, 2024 09:38
[2024-08-01] MEDS: METOPROLOL SUCCINATE XL 50 MG TAB PO SCH (10:21)
--- NOTE | 2024-08-01 12:07 | DVHDS2 ---
Discharge Summary Date of Admission Jul 31, 2024 at 07:30 Date of Discharge: Aug 01, 2024 Admitting Diagnosis Chest pain, rule out ACS Labs/Diagnostic Data: Laboratory Results Test 08/01/24 06:19 08/01/24 06:09 07/31/24 04:34 White Blood Count 5.4 10^3/uL (4.4-10.8) Red Blood Count 3.49 10^6/uL (4.5-5.90) Hemoglobin 9.9 g/dL (13.5-17.5) Hematocrit 29.5 % (41.0-53.0) Mean Corpuscular Volume 84.5 fL (80.0-100.0) Mean Corpuscular Hemoglobin 28.4 pg (28.0-32.0) Mean Corpuscular Hemoglobin Concent 33.7 g/dL (32.0-36.0) Red Cell Distribution Width 15.2 % (11.8-14.3) Platelet Count 136 10^3/uL (140-450) Mean Platelet Volume 8.7 fL (6.9-10.8) Neutrophils (%) (Auto) 57.3 % (37.0-80.0) Lymphocytes (%) (Auto) 32.7 % (10.0-50.0) Monocytes (%) (Auto) 7.7 % (0.0-12.0) Eosinophils (%) (Auto) 1.9 % (0.0-7.0) Basophils (%) (Auto) 0.4 % (0.0-2.0) Neutrophils # (Auto) 3.1 10 ^3/uL (1.6-8.6) Lymphocytes # (Auto) 1.8 10 ^3/uL (0.4-5.4) Monocytes # (Auto) 0.4 10 ^3/uL (0-1.3) Eosinophils # (Auto) 0.1 10 ^3/uL (0-0.8) Basophils # (Auto) 0 10 ^3/uL (0-0.2) Nucleated Red Blood Cells 0.0 % Sodium Level 132 mmol/L (136-145) Potassium Level 3.5 mmol/L (3.5-5.1) Chloride Level 97 mmol/L (98-107) Carbon Dioxide Level 27 mmol/L (20-31) Anion Gap 8 (5-15) Blood Urea Nitrogen 44 mg/dL (9-23) Creatinine 3.35 mg/dL (0.700-1.30) Glomerular Filtration Rate Calc 18 mL/min (>90) BUN/Creatinine Ratio 13.1 (10.0-20.0) Serum Glucose 113 mg/dL (74-106) Calcium Level 9.7 mg/dL (8.7-10.4) Total Bilirubin 0.5 mg/dL (0.2-1.0) Aspartate Amino Transferase (AST) 81 U/L (13-40) Alanine Aminotransferase (ALT) 10 U/L (7-40) Alkaline Phosphatase 34 U/L (46-116) Troponin I High Sensitivity 47311 ng/L (</=54) Total Protein 5.4 g/dL (5.7-8.2) Albumin 3.3 g/dL (3.2-4.8) POC Glucose 117 mg/dl (70-106) Hemoglobin A1c 5.6 % A1C (<5.7) Magnesium Level 1.7 mg/dL (1.6-2.6) B-Type Natriuretic Peptide 506.01 pg/mL (0-100) Triglycerides Level 127 mg/dL (< 150) Cholesterol Level 168 mg/dL (< 200) LDL Cholesterol 111 mg/dL (< 100) HDL Cholesterol 34 mg/dL (40-59) Thyroid Stimulating Hormone (TSH) 2.43 uIU/mL (0.55-4.78) Other Laboratory Tests 08/01/24 06:19 Brief Hx & Hospital Course: History of Present Illness Cesar Greenberg is a 74-year-old male with past medical history of IA in May 2024, atrial fibrillation, CAD, diabetes, hyperlipidemia, chronic kidney disease, and CHF, who came in due to chest pain. Patient lives with his daughter. She states he came out of his room about 0100 stating he had a headache, took Tylenol and he was having chest pain for which he took nitro x 2. He was then feeling nauseated, vomited, and took his 3rd nitro after he vomited. The daughter called EMS due to his chest pain continuing. She states his BP was in the low 100, then started dropping. By the time EMS arrived his SBP was in the 60s. Patient states chest pain has improved, continues to complain of headache. Course of hospitalization: Cardiology consultation obtained. Echocardiogram was performed. Patient has serial troponins, with troponins continued [place] [address]. Long discussion was made with Cardiology by myself, as well as with the patient and daughter. Given the patient had recent angiogram and chronic kidney disease stage 4, they are not wanting to entertain the idea for angiogram at this time. The patient was currently being medically managed. Patient was hemodynamically stable. Given the patient has persistent upper trending of troponins and we have not received any medical records from [facility], recommendations were made by myself for transfer to their system. With the patient was daughter agreeable this discharge plan. Vibration Technician will be contacted, with process being placed for transferring to their telemetry floor once bed is available. Physical examination General: Alert and Oriented x3. No acute distress. Well-nourished. Eyes: EOMI. Anicteric. HENT: Moist mucous membranes. Lungs: Clear to auscultation bilaterally. No accessory muscle use. Cardiovascular: Regular rate and rhythm. No murmur. No JVD. Abdomen: Soft, non-tender and non-distended. No palpable masses. Extremities: No edema. Non-tender. Skin: No rashes or lesions. Warm. Neurologic: No focal neurological deficits. CN II-XII grossly intact, but not individually tested. Psychiatric: Cooperative. Appropriate mood and affect. Total time spent with patient discussing and formulating plan of care: 35 minutes. This medical document was created using an electronic medical record system with [employer] dictation system. Although this document has been carefully reviewed, there may still be some phonetic and typographical errors. These areas are purely typographical due to imperfections of the software programs, and do not reflect any compromise in the patient's medical care. Consults/Reason for consult Cardiology: NSTEMI type 1 Condition at Discharge: Guarded Final Diagnosis/Problems List NSTEMI Secondary diagnosis: History of CAD with previous CABG -dyslipidemia -primary hypertension -CKD stage four -primary hypertension Discharge Disposition: Acute Care Facility Discharge Instruct/Medications Diet: Consistent carbohydrate, Cardiac 2g Na,low cholest Activity: No Restrictions, As Tolerated Follow Up/Referral: Accepting provider Medications: Per medication reconciliation form 36 Discharge Statement: "Patient was advised to return to the ER or call 911 if any headaches, dizziness, shortness of breath, chest pain, abdominal pain, bleeding, fevers, or worsening of medical condition. Patient was counseled about treatment plan, medications, possible side effects, patientverbalized understanding. All questions were answered to the best of my ability. This discharge took greater then 30 minutes in planning, reviewing documentation, counseling the patient, and discussing with other team members." ASSESSMENT ASSESSMENT Assessment NSTEMI Date of Service: Aug 01, 2024 Billing Provider: LINDSEY ACOSTA NP Common Visit Codes: 78293-EVA/OBS DISCH DAY >30min LINDSEY ACOSTA NP Aug 01, 2024 12:07
[2024-08-01 17:10] LABS: COVID19 ANTIGEN SOFIA FIA NEGATIVE (NEGATIVE)
--- NOTE | 2024-08-02 08:15 | ECG ---
[facility] Test Date: 2024-08-01 Test Time: 08:44:33 Pat Name: DESTINY GUTIERREZ Department: Room: 0294T B Gender: M Internet Salesperson: RN : [id number] Requested By: ANA CRISTINA HOROWITZ Order Number: [id number] Reading MD: Sampson Musa Measurements Intervals [place] Rate: 52 P: -15 CT: 175 QRS: -19 QRSD: 164 T: 23 QT: 504 QTc: 469 Interpretive Statements Sinus rhythm Right bundle branch block Electronically Signed On 08-02-2024 20:35:13 PDT by Sampson Musa Please click the below link to view image of tracing.
== END 2024-08-01 20:36 | disposition short-term general hospital (02) | DRG 281 ==
LOC: ER 03:31 → EDBD 03:31 → OVERFLOW 07:30 → TELE-WESTW 23:15
PROVIDERS: ADMIT Nurse Practitioner Acute Care; ATTEND Nurse Practitioner Acute Care
DX: I21.4 Non-ST elevation (NSTEMI) myocardial infarction (principal); I13.0 Hypertensive heart and chronic kidney disease with heart failure and stage 1 through stage 4 chronic kidney disease, or unspecified chronic kidney disease; I48.19 Other persistent atrial fibrillation; N18.4 Chronic kidney disease, stage 4 (severe); E11.22 Type 2 diabetes mellitus with diabetic chronic kidney disease; Z20.822 Contact with and (suspected) exposure to COVID-19; I25.10 Atherosclerotic heart disease of native coronary artery without angina pectoris; I50.9 Heart failure, unspecified; E78.5 Hyperlipidemia, unspecified; J44.9 Chronic obstructive pulmonary disease, unspecified; I45.10 Unspecified right bundle-branch block; I49.3 Ventricular premature depolarization; N40.0 Benign prostatic hyperplasia without lower urinary tract symptoms; Z79.82 Long term (current) use of aspirin; I25.2 Old myocardial infarction; Z95.1 Presence of aortocoronary bypass graft; Z79.84 Long term (current) use of oral hypoglycemic drugs; Z79.899 Other long term (current) drug therapy; Z79.01 Long term (current) use of anticoagulants
CPT/HCPCS: 36415; 70450; 71045; 80053; 80061; 82962; 83036; 83735; 83880; 84443; 84484; 85025; 87426; 93005; 93306; 96360; 99291; G0378; J1815